=== PATIENT | male | born 1955 | race Caucasian/White ===

== ENCOUNTER 2021-10-04 21:30 | Observation (INO) | payer OTHER ==
--- NOTE | ~2021-10-04 | EMS ---
[facility] [address] [place] [address] EMS Patient Care Report Name: LUIS PÉREZ Room #: 205-P ROMEO Denney#: [id number] Admission: 10/04/21 Attend Phys: Aiden Landa Discharge: 10/06/21 Date of : 51 Report #: [id number] THIS REPORT FOR: //name// Report Transmitted: 10/24/2021 12:42 EMS Care Summary [facility] Incident 22-0045 @ 10/04/2021 19:35 Incident Location [address] [place] [id number] Patient Luis Pérez Male, 76 Years 1945-04-16 Patient Address [id number] [place] [address] Patient History Acute ischemic heart disease, unspecified, Patient Allergies No known allergies, Patient Medications Aspirin, , Metoprolol, Disposition Transported No Lights/[place] Dispatch Reason Airmedical Transport Transported To [facility] Narrative [facility] called to [facility] for transport of male patient with STEMI to be transported to [facility]. Upon our arrival, found pt in ER bed 6 with nursing staff at bedside. Report from Filippo GOLE. Per report, pt arrived POV to ER with complaint of chest pain onset after field dressing a large deer this evening. Pt was found to have ST elevation in leads II, III, and AVF. Pt received Aspirin, Heparin bolus, Nitro x2, Lipitor and Morphine while in ER. Assessment complete as documented and pt readied for transport. Pt [facility] [address] [place] [address] EMS Patient Care Report Name: LUIS PÉREZ Room #: 205-P ROMEO Denney#: [id number] Admission: 10/04/21 Attend Phys: PilloCoy Landa Discharge: 10/06/21 Date of : 51 Report #: [id number] loaded and secured to aircraft sled with assist of hospital staff and transported to aircraft with same assist. Radio report to [facility] with 14 minute ETA. Upon our arrival, pt taken directly to dental laboratory manager. Report to Zonia GOEL, care released. Pt handed LFE staff wallet with visible money. Wallet placed in pt brief case, [facility] staff placed brief case and belongings bag in room 9 where pt to be taken post procedure. Initial Vitals @PTAGlucose: 147, @PTAP: 73,R: 12,BP: 110/68,SpO2: 99, @20:23P: 73,R: 14,BP: 109/70,Pain: 7/10,GCS: 15,Temp: 66.02F,SpO2: 99,Revised Trauma: 12, @20:32P: 79,R: 20,BP: 132/81,Temp: 52.16F,SpO2: 95, @20:42P: 78,R: 10,BP: 134/81,Pain: 7/10,Temp: 66.2F,SpO2: 96, @20:52P: 85,R: 14,BP: 147/84,Temp: 68F,SpO2: 97, @21:02P: 88,R: 11,BP: 147/85,Pain: 5/10,GCS: 15,Temp: 70.7F,SpO2: 95,Revised Trauma: 12, Assessments @20:20MENTAL:SKIN:HEENT:LUNG SOUNDS:ABDOMEN:PELVIS//GI:EXTREMITIES:PULSE:NEURO:@21:10MENTAL:SKIN:HEENT:LUNG SOUNDS:ABDOMEN:PELVIS//GI:EXTREMITIES:PULSE:NEURO: Impression ST elevation (STEMI) myocardial infarction of other sites Procedures @PTAOther - Medication - 2 Liters per Minute (LPM [gas]) - Nasal Cannula Response: Unchanged @20:30 Ondansetron - 4 Milligrams (mg) - Intravenous (IV) Response: Unchanged @20:40 Fentanyl - 100 Micrograms (mcg) - Intravenous (IV) Response: Improved @PTAIV Therapy - cc () Site: Antecubital-RightSucceeded @PTAIV Therapy - cc () Site: Antecubital-LeftSucceeded @TIEDOWN OPERATOR: 20:34 Elevation of head of bed (procedure)Succeeded @20:54 WarmingSucceeded Timeline TIEDOWN OPERATOR,Other - Medication - 2 Liters per Minute (LPM [gas]) - Nasal Cannula,Response: Unchanged TIEDOWN OPERATOR,IV Therapy - cc Site: Antecubital-Right,Succeeded, TIEDOWN OPERATOR,IV Therapy - cc Site: Antecubital-Left,Succeeded, TIEDOWN OPERATOR,BP: / M,PULSE: ,RR: R,SPO2: Ox,ETCO2: ,B,PAIN: ,GCS: , TIEDOWN OPERATOR,BP: 110/68 M,PULSE: 73,RR: 12 R,SPO2: 99 Ox,ETCO2: ,BG: ,PAIN: ,GCS: , 18:00,Call Received 19:33,Psap Call [facility] [address] [place] [address] EMS Patient Care Report Name: LUIS PÉREZ Room #: 205-P DIS Samantha NatanCoyElidiaCoy#: [id number] Admission: 10/04/21 Attend Phys: Aiden Landa Discharge: 10/06/21 Date of : 51 Report #: [id number] 19:35,Dispatched 19:51,En Route 20:17,On Scene 20:20,At Patient 20:23,BP: 109/70 M,PULSE: 73,RR: 14 R,SPO2: 99 Ox,ETCO2: ,BG: ,PAIN: 7,GCS: 15, 20:28,Transfer Of Care 20:30,Ondansetron - 4 Milligrams (mg) - Intravenous (IV),Response: Unchanged 20:32,BP: 132/81 M,PULSE: 79,RR: 20 R,SPO2: 95 Ox,ETCO2: ,BG: ,PAIN: ,GCS: , 20:33,Depart Scene 20:34,Elevation of head of bed (procedure),Succeeded, 20:40,Fentanyl - 100 Micrograms (mcg) - Intravenous (IV),Response: Improved 20:42,BP: 134/81 M,PULSE: 78,RR: 10 R,SPO2: 96 Ox,ETCO2: ,BG: ,PAIN: 7,GCS: , 20:52,BP: 147/84 M,PULSE: 85,RR: 14 R,SPO2: 97 Ox,ETCO2: ,BG: ,PAIN: ,GCS: , 20:54,Warming,Succeeded, 21:02,BP: 147/85 M,PULSE: 88,RR: 11 R,SPO2: 95 Ox,ETCO2: ,BG: ,PAIN: 5,GCS: 15, 21:03,At Destination 21:40,Call Closed 22:04,In District Disclaimer v1.1 Copyright 2021 [employer] This EMS Care Summary contains data elements from the applicable legal record (which may be displayed differently). It is designed to provide pertinent information for the following purposes: continuity of care, clinical quality, and state data reporting. The complete legal record is available to ED staff and administrators of the receiving hospital in [facility]'s Patient Tracker. All data is provided "as is."
--- NOTE | 2021-10-04 23:04 | NUR ---
late entry: unable to chart in [facility]. This senior technical writer administered Effient 60mg PO prior to leaving the manager cardiac cath at 2245.
[2021-10-04 23:05] VITALS: BP 103/79
[2021-10-05 02:37] LABS: HEMATOCRIT 43.6 % (42.0-52.0); HEMOGLOBIN 14.6 gm/dL (14.0-18.0); MCH 31.4 pg (26.0-34.0); MCHC 33.5 g/dL (28.0-37.0); MCV 93.9 fL (80.0-100.0); RBC 4.64 mil/uL (4.50-6.00); RDW 13.7 % (10.5-14.5)
[2021-10-05 03:38] LABS: CALCIUM 8.6 mg/dL (8.5-10.1); CREATININE 0.9 mg/dL (0.7-1.3); POTASSIUM 4.1 mmol/L (3.5-5.1)
[2021-10-05 03:39] LABS: ALBUMIN 3.5 g/dL (3.4-5.0); TOTAL BILIRUBIN 0.6 mg/dL (0.2-1.0); TOTAL PROTEIN 7.1 g/dL (6.4-8.2)
[2021-10-05 03:42] VITALS: BP 108/63
[2021-10-05 04:05] LABS: CHOLESTEROL 120 mg/dL (<200); HDL CHOLESTEROL 34 mg/dL (>40); LDL CHOLESTEROL 61 mg/dL (<100); TC:HDL 3.5 Ratio (Not establshd); TRIGLYCERIDE 128 mg/dL (<150); VLDL 26 mg/dL (<40)
[2021-10-05 04:30] LABS: SERUM ASSESSMENT Clear
--- NOTE | 2021-10-05 06:24 | NUR ---
PATIENT ADMITTED FROM GRAVITY PROSPECTING OPERATOR POST CARDIAC STENTING. PATIENT IS AAOX4. R GROIN SITE IS CDI. STATES THAT HE FEELS MUCH BETTER. PULSES ARE STRONG AND EQUALLY BILATERALLY. HE IS 97% RA. DENIES PAIN OR NEEDS. VITAL SIGNS STABLE. WILL CONTINUE TO MONITOR.
[2021-10-05 07:52] VITALS: BP 104/56
--- NOTE | 2021-10-05 11:22 | NUR ---
PATIENT ADMITTED FOR STEMI. CHART REVIEWED AND DISCUSSED WITH CARE TEAM. CM MET WITH PT THIS DAY. CM ROLE INTRODUCED. PATIENT REPORTS HE HAD HIS GALLBLADDER REMOVED A WEEK AGO. AFTER A COUPLE OF DAYS HE BEGAN NOT FEELING GOOD. WAITING A COUPLE OF DAYS AND BEGAN VOMITING AND HAVING SHOULDER AND CP. HE WENT TO LOCAL HOSPITAL. THEY TRIED TO TRANSFER TO [facility] THEY WERE FULL. THEN TRIED [facility] AND THEY WERE FULL. ADMITTED TO [facility] FOR TREATMENT. PT REPORTS HE DOES NOT USE ASSISTIVE DEVICE. HE DID A YEAR AGO WITH KNEE SURG BUT NO LONGER NECESSARY TO USE. PT LIVES AT HOME WITH HIS . HIS PCP IS WILLIAM ZHANG. HE REPORTS NO CONCERNS WITH DC HOME. HE WILL JUST NEED TRANSPORT HOME WHICH WE WILL ARRANGE. CONTINUE TO FOLLOW FOR ANTICIPATED DC TOMORROW WITH TRANSPORTATION ARRANGED.
--- NOTE | 2021-10-05 11:30 | EKG ---
[address] [place] [address] ELECTROCARDIOGRAM REPORT Name: BETOSWATI Room #: 205-P [facility] M.R.#: [id number] Admission: 10/04/21 Attend Phys: Aiden Landa Discharge: Date of : 51 Report #: [id number] 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 : 1955 Requested By: Norma Doan Order Number: [id number] MD: Bipin Tan Measurements Intervals [place] Rate: 75 P: 35 WV: 178 QRS: -10 QRSD: 87 T: 74 QT: 383 QTc: 428 Interpretive Statements Sinus rhythm Probable left atrial enlargement Abnormal R-wave progression, early transition Left ventricular hypertrophy Inferior infarct, old No previous ECG available for comparison Electronically Signed On 10-05-2021 11:30:16 FLOOR TECHNICIAN by Bipin Tan [email or web address] <ELECTRONICALLY SIGNED> By: Bipin Tan MD, [facility] 10/05/21 1130 0913 2 Bipin Tan MD, FACC /EPI
[2021-10-05 12:09] VITALS: BP 114/57
[2021-10-05 15:14] VITALS: BP 102/67
--- NOTE | 2021-10-05 16:46 | NUR ---
NO FALLS OR INJURIES THIS SHIFT. PATIENT UP INDEPENDENT IN ROOM. EXPECTED TO DC FIRST THING IN MORNING AND HAVE ECHO COMPLETED AT CLINIC AT 11AM. PHARMACY INFO GIVEN TO KESHIA WITH CARDIOLOGY.
[2021-10-05 19:42] VITALS: BP 115/52
[2021-10-06 04:24] VITALS: BP 112/75
--- NOTE | 2021-10-06 05:27 | NUR ---
PATIENT DOING WELL THIS EVENING. STATES THAT HE IS READY TO GO HOME IN THE AM. DRESSING SITE TO R GROIN IS CDI/ VSS. DENIES PAIN OR NEEDS. COMPLIANT WITH ALL TREATMENT. NO S/S OF DISTRESS NOTED. WILL CONTINUE TO [place] FOR CHANGES IN PATIENT STATUS.
[2021-10-06 08:03] VITALS: BP 109/65
[2021-10-06] MEDS ORDERED: LIPITOR40 MG PO (08:32)
[2021-10-06] MEDS ORDERED: EFFIENT10 MG PO (08:32)
[2021-10-06] MEDS ORDERED: SYNTHROID200 MCG PO (08:32)
[2021-10-06] MEDS ORDERED: METOPROLOL SUCC25 M1 PO (08:32)
[2021-10-06] MEDS ORDERED: BAYER CHEWABLE81 MG PO (08:32)
[2021-10-06] MEDS ORDERED: NITROGLYCERIN0.4 MG SUBLING (08:32)
--- NOTE | 2021-10-06 08:49 | 2DMMODE ---
[facility] [place] [address] 2 D/M-MODE ECHOCARDIOGRAM Name: SWATI PÉREZ Room #: 205-P ADM Samantha Denney#: [id number] Admission: 10/04/21 Attend Phys: Aiden Landa Discharge: Date of : 51 Report #: [id number] THIS REPORT FOR: cc: MASSIMO ZHANG Physician not on staff Aiden Landa MD ~ APPROVED REPORT Study performed: 10/05/2021 18:09:03 EXAM: Comprehensive 2D, Doppler, and color-flow Echocardiogram Patient Location: In-Patient Room #: 205 Status: routine BSA: 2.19 HR: 82 bpm BP: 102/67 mmHg Rhythm: NSR Other Information Study Quality: Fair Technically limited study due to body habitus. Risk Factors: Cardiac Risk Factors: HTN Indications CAD Hypertension/HDD 2D Dimensions IVSd: 13.79 (7-11mm) LVOT Diam: 21.82 (18-24mm) LVDd: 43.71 mm PWd: 14.54 (7-11mm) Ascending Ao: 31.01 (22-36mm) LVDs: 27.65 (25-40mm) Left Atrium: 40.23 (27-40mm) Aortic Root: 27.13 mm Volumes Left Atrial Volume (Systole) Single Plane 4CH: 20.79 mL Single Plane 2CH: 25.01 mL Biplane LA Volume: 25.00 mL LA ESV Index: 11.00 mL/m2 Aortic Valve [facility] [address] [place] [address] 2 D/M-MODE ECHOCARDIOGRAM Name: SWATI PÉREZ Room #: 205-P ADM IN M.R.#: [id number] Admission: 10/04/21 Attend Phys: Aiden Carrasco Discharge: Date of : 51 Report #: [id number] AoV Peak Robert.: 1.36 m/s AO Peak Gr.: 7.42 mmHg LVOT Max P.02 mmHg LVOT Max V: 1.12 m/s JUANCARLOS Vmax: 3.08 cm2 Mitral Valve E/A Ratio: 0.7 MV Decel. Time: 3469.13 ms MV E Max Robert.: 0.35 m/s MV A Robert.: 0.52 m/s MV PHT: 1006.05 ms IVRT: 78.43 ms Pulmonary Valve PV Peak Robert.: 1.28 m/s PV Peak Gr.: 6.55 mmHg Tricuspid Valve TR Peak Robert.: 1.13 m/s RAP Estimate: 7.00 mmHg TR Peak Gr.: 5.09 mmHg RVSP: 12.00 mmHg Left Ventricle The left ventricle is normal size. There is normal LV segmental wall motion. There is normal left ventricular wall thickness. Left ventricular systolic function is normal. The left ventricular ejection fraction is within the normal range. LVEF is 55-60%. Mild diastolic dysfunction is present (impaired relaxation pattern). Right Ventricle The right ventricle is normal size. The right ventricular systolic function is normal. Atria The left atrium size is normal. The right atrium size is normal. Aortic Valve Aortic valve is trileaflet. No aortic regurgitation is present. There is no aortic valvular stenosis. Mitral Valve The mitral valve is normal in structure. There is no mitral valve regurgitation noted. No evidence of mitral valve stenosis. Tricuspid Valve The tricuspid valve is normal in structure. Trace tricuspid [facility] [address] [place] [address] 2 D/M-MODE ECHOCARDIOGRAM Name: SWATI PÉREZ Room #: 205-P [facility] IN M.R.#: [id number] Admission: 10/04/21 Attend Phys: Aiden Carrasco Discharge: Date of : 51 Report #: [id number] regurgitation. PAP 12 mmHg Pulmonic Valve The pulmonary valve is normal in structure. There is no pulmonic valvular regurgitation. Great Vessels The aortic root is normal in size. IVC is normal in size and collapses >50% with inspiration. Pericardium There is no pericardial effusion. There is no pleural effusion. <Conclusion> The left ventricle is normal size. There is normal LV segmental wall motion. LVEF is 55-60%. Aortic valve is trileaflet. The mitral valve is normal in structure. The tricuspid valve is normal in structure. Trace tricuspid regurgitation. PAP 12 mmHg The pulmonary valve is normal in structure. The aortic root is normal in size. There is no pericardial effusion. <ELECTRONICALLY SIGNED> By: Aiden Landa MD 10/06/21847 7 7 Aiden Landa MD /INF
[2021-10-06 11:07] VITALS: BP 112/70
[2021-10-06 12:28] VITALS: BP 112/70
--- NOTE | 2021-10-06 13:00 | NUR ---
TOOK OVER CARE OF THIS PATIENT AT 0700. PT RESTING IN RECLINER AT THIS TIME. PT AXOX4; DENIES SOA, PAIN, DIZZINESS. PT VERY ANXIOUS ABOUT GOING HOME; DEMANDING TO BE DISCHARGED AND TO GO HOME. SPOKE WITH DR. MORRISON AND KESHIA HUNT SHEARING MACHINE TENDER REGARDING PATIENTS DEMANDS; PLAN TO DISCHARGE THIS AFTERNOON WHEN HIS RIDE ARRIVES.
--- NOTE | 2021-10-30 23:19 | CATHLAB ---
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 A PINNACLE 6FR Sheath #[id number] sheath was inserted into the RFA^. Coronary angiography was performed using coronary diagnostic catheters. The right coronary system was accessed and visualized with a JR4 catheter. The left coronary system was accessed and visualized with a JL4 catheter. Closure device was deployed with a 6 Fr MYNXGRIP 6/7F #[id number]. The patient tolerated the procedure well and there were no complications associated with the procedure. There was no hematoma. Intraoperative Conscious Sedation Sedation start time: 21:27 Case end Time: 22:30 Versed 3 mg [facility] [address] [place] [address] INVASIVE PROCEDURE REPORT Name: BETOSWATI Room #: 205-P [facility] IN .R.#: [id number] Admission: 10/04/21 Attend Phys: Aiden Carrasco Discharge: 10/06/21 Date of : 51 Report #: [id number] Fluoro Time: 13.37 minutes Dose: DAP 83105.89 cGycm2 2564 mGy Contrast Type and Amount: Visipaque 320-180ml Coronary Angiography The patient's coronary anatomy is right dominant. [place] Artery Percent Stenosis Grafts (Complete if Previous CABG=Yes: Percent Stenosis) Left Main: % Prox LAD: % Mid/Distal LAD: 100 % Circumflex: % RCA: 100 % Ramus: % Diagnostic Cath Left Main Large caliberber vessel of normal origin bufurcates into LAD and LCx arteries. there is a distal eccentric 30% lesion. LAD Moderate caliber type III vessel courses in the anterior intraventricular sulcus giving rise to septal and diagonal branches.there is a moderate ostial lesion in D1 after which LAD proper has irregularities of less than 50% until the distal third where the vessel is less than 1mm in diameter and there is a 90% lesion noted then reconstitutes and terminates as a small bifurcating branch Diagonal 1 small caliber with 50% proximal non flow limiting lesion Diagonal 2 small insignificant caliber Circumflex Moderate caliber nondominant vessel gives rise to diminuitive branch proximally with a high grade proximal lesion. The circumflex then continues and bifurcates in the terminal portion. the prior stents are patent with mild intraluminal irregularities OM1 diminuitive vessel with distal moderate to high grade lesion OM2 moderate caliber vessel without highgrade lesions and with patent stents Right Coronary moderate caliber vessel of normal origin totally occluded proximally. the distal rca and pda fill via retrograde from left to right collaterals R PDA small caliber vessel without significant high grade lesions Left Ventriculography Left Ventriculography was not performed. Hemodynamics The aortic pressure is 168/79 mmHg with a mean of 105 mmHg. [facility] [address] [place] [address] INVASIVE PROCEDURE REPORT Name: SWATI PÉREZ Room #: [facility] IN M.R.#: [id number] Admission: 10/04/21 Attend Phys: Aiden Carrasco Discharge: 10/06/21 Date of : 51 Report #: [id number] PCI Technique AJR4 guide was engaged with the RCA origin. A 0.014 wire was then advanced to the distal RCA. A sprinter 2.25mm balloon was then positioned and dialated across the mid rca lesion. Subsequently the balloon was exchanged for a resolute stent which was diated per protocol. Asecond stent was deployed priximally without complications. the rca/pda bifurcation had a significant lesion which was subsequently stented with a HARVEY 2.25mm diameter and dilated per noted in log. Post procedure the vessel was widely patent without distal embolization, intraluminal disreuption, or impaired flow. PCI Technique Lesion Percutaneous coronary intervention was performed on the mistal right coronary artery. A VISTA 6FR JR 4 #[id number] Guide Catheter was used to engage the ostium. A Luge Wire .014 x 182CM #[id number] Interventional Guidewire was used to cross the lesion. BALLOON DILATION A Balloon catheter Sprinter OTW 2.25 x 15 #[id number] was inserted and inflated up to 16.00atm for 24seconds. STENT DEPLOYMENT A drug-eluting stent RESOLUTE ANDRE OTW 3.0 X 26 #[id number] was inserted and inflated up to 12.00atm for 12seconds. A second drug-eluting stent (3.0mm x 15mm Resolute Andre OTW) was inserted and inflated proximally to first drug-eluting stent. 16 marilu for 16 seconds Additional inflation: 18 marilu for 13 seconds Additional inflation: 19 marilu for 12 seconds Additional inflation: 20 marilu for 9 seconds in Mid RCA A third drug-eluting stent (2.25mm x 12mm Resolute [place] OTW) was inserted and inflated in distal RCA. 14 marilu for 13 seconds Additional inflation: 18 marilu for 7 seconds Conclusion 1. Coronary Artery Disease severe s/p ACBG with acutely occluded proximal RCA 2. Successful PCI and Stenting of the proximal RCA 3. Abnormal hemodynamics Recommendations Daily ASA with Plavix for at least one year Cardiac Risk Reduction Program Aggressive Medical Therapy <ELECTRONICALLY SIGNED> By: Aiden Landa MD 10/30/212318 18 18 Aiden Landa MD /INF
== END 2021-10-06 13:14 | disposition home or self-care (01) ==
LOC: ER 21:30 → EDBD 21:30 → TBACV 22:10 → 2N 22:10
PROVIDERS: ADMIT Internal Medicine; ATTEND Internal Medicine
DX: I25.110 Atherosclerotic heart disease of native coronary artery with unstable angina pectoris (principal); I10 Essential (primary) hypertension; E78.5 Hyperlipidemia, unspecified; I21.9 Acute myocardial infarction, unspecified; E66.9 Obesity, unspecified; Z87.891 Personal history of nicotine dependence; Z79.899 Other long term (current) drug therapy
CPT/HCPCS: 10081